=== PATIENT | male | born 1965 | race Caucasian/White ===

== ENCOUNTER → 2016-12-13 | Outpatient (CLI) | payer MEDICAID ==
--- NOTE | 2016-12-13 16:19 | CR ---
EXAMINATION: Lumbar spine HISTORY: Back pain COMPARISON: None TECHNIQUE: AP and lateral views obtained. FINDINGS: The lumbar spinal alignment is normal. The vertebral body heights and disc spaces appear w ell-maintained. There is no fracture or dislocation. The SI joints are symmetric. Mild marginal oste ophytes are noted. Mild vascular calcifications are noted. IMPRESSION: Mild degenerative changes without acute findings.
== END ==
LOC: MW.CHRC 14:15
PROVIDERS: ATTEND Family Medicine
DX: M54.9 Dorsalgia, unspecified (principal)
CPT/HCPCS: 72100; 72100-26

== ENCOUNTER → 2016-12-29 | Outpatient (CLI) | payer MEDICAID ==
[2016-12-29 17:15] LABS: CHLORIDE,CL 104 mmol/L (98-110); SODIUM,NA 139 mmol/L (136-146)
== END | disposition home or self-care (01) ==
LOC: MW.CHRC 16:22
PROVIDERS: ATTEND Family Medicine
DX: I10 Essential (primary) hypertension (principal)
CPT/HCPCS: 36415; 80053; 80061; 81001; 85025; 93005